=== PATIENT | male | born 1975 | race Caucasian/White ===

== ENCOUNTER → 2018-01-10 | Emergency (ER) | payer BC ==
[~2018-01-10] VITALS: Ht 177.8 cm; Wt 95.3 kg
[~2018-01-10] MED LIST: DEXAMETHASONE SOD PHOSPHATE 10 MG INJ ONE; DEXAMETHASONE SOD PHOSPHATE 4 MG INJ IV ONE; FENTANYL CITRATE 100 MCG/2 ML AMPUL IV ONE; FENTANYL CITRATE 100 MCG/2 ML AMPUL ONE; HYDROMORPHONE 1 MG/1 ML DISP.SYRIN IV ONE; HYDROMORPHONE 1 MG/1 ML DISP.SYRIN ONE; KETOROLAC TROMETHAMINE 15 MG INJ IVP ONE; KETOROLAC TROMETHAMINE 15 MG INJ ONE; LORAZEPAM 2 MG/1 ML VIAL IV ONE; LORAZEPAM 2 MG/1 ML VIAL ONE; MORPHINE SULFATE 4 MG/1 ML DISP.SYRIN ONE; ONDANSETRON 4 MG/2 ML VIAL ONE; ONDANSETRON IV *ER 4 MG/2 ML VIAL IV ONE
--- NOTE | 2018-01-10 01:25 | NUR ---
PATIENT WAS BIB [facility] FOR BACK SPASM. UPON ARIIVAL PATIENT C/O 10/10 BACK PAIN. PATIENT WITH H/O BACK SURGERY AND BACK PAIN BEING FOLLOWED BBY HIS PRIMARY CARE PHYSICIAN. PATIENT IS AWAKE, ALERT AND ORIENTED.
--- NOTE | 2018-01-10 01:36 | NUR ---
DR. FITCH AT BEDSIDE FOR MSE.
--- NOTE | 2018-01-10 03:30 | NUR ---
Clifton rutledge in [facility] - 01/10/18 at 0409 by [id number] PATIENT SPOKE WITH [facility] WITH TRANSFER TO [facility].
--- NOTE | 2018-01-10 03:30 | NUR ---
DR. FITCH SPOKE WITH [facility] H[facility], DR. THRASHER FOR TRANSFER TO [facility].
--- NOTE | 2018-01-10 03:50 | NUR ---
[facility] CONTACTED.
--- NOTE | 2018-01-10 04:08 | NUR ---
FACE SHEET AND PHYSICIAN REPORT FAXED TO [facility]
--- NOTE | 2018-01-10 04:23 | NUR ---
RECEIVED CALL FROM [facility] AND SPOKE WITH DR. FITCH. TRANSFER WILL BE ARRANGED AND AWAITING CALL BACK.
--- NOTE | 2018-01-10 04:46 | NUR ---
RECEIVED CALL FROM [facility] TRAN[facility]ER [facility]. PT IS TO BE TRANSFERRED TO [address], [address]. ACCEPTING MD IS DR. PERAZA. PHONE NUMBER FOR REPORT IS [phone].
--- NOTE | 2018-01-10 05:03 | NUR ---
[facility] ETA 45 MIN TO 1 HR TRIP #[id number]
--- NOTE | 2018-01-10 05:08 | NUR ---
REPORT GIVEN TO CHACE SMITH. PENDING TRANSPORT.
--- NOTE | 2018-01-10 05:48 | NUR ---
TRANSPORT HERE, PATIENT LEFT IN STABLE CONDITION.
== END | disposition home or self-care (01) ==
LOC: ER 01:30
DX: M54.5 Low back pain (principal); J45.909 Unspecified asthma, uncomplicated
CPT/HCPCS: 96374; 96375; 96376; 99285; J1100; J1170 ×2; J1885; J2060; J2405; J3010; A4663; J2270